=== PATIENT | male | born 1935 | race Caucasian/White ===

== ENCOUNTER 2019-05-21 20:32 | Emergency (ER) | payer MEDICARE, OTHER ==
[~2019-05-21] VITALS: Ht 185.4 cm; Wt 100.0 kg
[2019-05-21] MEDS ORDERED: haloperidol lactate 5mg/ml inj IM ONE (20:45)
[2019-05-21] MEDS ORDERED: FLEC50TA PO (20:56)
[2019-05-21] MEDS ORDERED: MULT1TAB74 PO (20:56)
[2019-05-21] MEDS ORDERED: BISA10SU11 RC (21:07)
[2019-05-21] MEDS ORDERED: QUET25TA PO (21:07)
[2019-05-21] MEDS ORDERED: FLO0.4C PO (21:07)
[2019-05-21] MEDS ORDERED: LORA1TAB PO (21:07)
[2019-05-21] MEDS ORDERED: SERT50TA PO (21:07)
[2019-05-21 21:14] LABS: BASOPHILS % (AUTO) 0.3 % (0-1); EOSINOPHILS # (AUTO) 0.2 X10'3 (0-0.9); EOSINOPHILS % (AUTO) 1.9 % (0-6); HEMATOCRIT 39.9 % (42.0-52.0); HEMOGLOBIN 13.7 g/dl (14.0-17.9); LYMPHOCYTES # (AUTO) 1.6 X10'3 (1.1-4.8); MEAN CORPUSCULAR HEMOGLOBIN 32.3 PG (27.0-31.0); MEAN CORPUSCULAR HGB CONC 34.3 g/dL (33.0-36.5); MEAN CORPUSCULAR VOLUME 94.2 FL (78-98); MEAN PLATELET VOLUME 9.2 FL (7.4-10.4); MONOCYTES # (AUTO) 0.7 X10'3 (0-0.9); MONOCYTES % (AUTO) 6.9 % (2-12); NEUTROPHILS # (AUTO) 8.1 X10'3 (1.8-7.7); NEUTROPHILS % (AUTO) 75.9 % (42-75); PLATELET COUNT 167 X10'3 (140-440); RED BLOOD COUNT 4.23 X10'6 (4.70-6.10); RED CELL DISTRIBUTION WIDTH 12.9 % (11.5-14.5); WHITE BLOOD COUNT 10.7 X10'3 (4.5-11.0)
--- NOTE | 2019-05-21 21:20 | NUR ---
PATIENT IN WHEELCHAIR WITH HAND CUFFS, TENSE, ANGRY, DEMANDING FOR HIS "HANDS TO BE RELEASED". WHEN ASSISTING WITH CHANGE INTO SCRUBS PATIENT YELLING STATING "DON'T YOU TAKE MY GLASSES OR ELSE YOU FUCKING FOLD THEM AND GIVE THEM BACK" PATIENT ASSISTED WITH DRESSING CHANGE AND BECAME CALM AND COOPERATIVE WITH QUESTIONS AND CARE PROVIDED, PATIENT ASKED FOR WATER AND STATES "THAT WATER IS DELICIOUS AND SO PURE". PATIENT POSITIONED FOR COMFORT, ALL SAFETY MEASURES IN PLACE, PATIENT IN SITE OF STAFF AT ALL TIMES.
--- NOTE | 2019-05-21 21:30 | NUR ---
PATIENT ATTEMPTED TO USE URINAL AND "MISSED", HYGIENE AND NEW SCRUB PANTS PROVIDED, PATIENT REPOSITIONED FOR COMFORT.
[2019-05-21 21:32] LABS: ALANINE AMINOTRANSFERASE 36 U/L (12-78); ALBUMIN 3.8 G/DL (3.4-5.0); ALBUMIN/GLOBULIN RATIO 1.1 (1.1-1.5); ALKALINE PHOSPHATASE 71 IU/L (46-116); ANION GAP 14 (8-16); ASPARTATE AMINO TRANSFERASE 31 U/L (10-37); BILIRUBIN,TOTAL 0.8 MG/DL (0.1-1.0); BLOOD UREA NITROGEN 18 MG/DL (7-18); BUN/CREATININE RATIO 14.6 (5.4-32.0); CHLORIDE 107 MMOL/L (99-107); CREATININE 1.23 MG/DL (0.60-1.10); GLUCOSE 106 MG/DL (70-104); POTASSIUM 3.7 MMOL/L (3.5-5.1); SODIUM 143 MMOL/L (135-145); TOTAL CARBON DIOXIDE 22.3 MMOL/L (24-32); TOTAL PROTEIN 7.3 G/DL (6.4-8.2); eGFR 56 ML/MIN
[2019-05-21 21:34] LABS: ETHANOL < 0.010 GM/DL (0.0-0.010)
[2019-05-21] MEDS ORDERED: LORazepam 1 MG tablet PO PRN (22:25)
[2019-05-21] MEDS ORDERED: bisacodyl 10mg suppository rectal RC PRN (22:25)
[2019-05-22 00:12] LABS: CLARITY,URINE CLEAR (Clear); COLOR,URINE YELLOW (Yellow); GLUCOSE, URINE NEGATIVE (Neg); KETONES,URINE 15 mg/dl (Neg); LEUKOCYTE ESTERASE ,URINE NEGATIVE (Neg); NITRITES, URINE NEGATIVE (Neg); OCCULT BLOOD,URINE NEGATIVE (Neg); PH,URINE 5.5 (4.8-8.0); PROTEIN,URINE TRACE mg/dl (Neg); UROBILINOGEN,URINE 0.2 E.U/dL (0.2-1.0)
[2019-05-22 00:17] LABS: UA COLLECTION TYPE NON-SPECIFIED
[2019-05-22 00:18] LABS: BACTERIA,URINE NONE SEEN /HPF (Neg); MUCUS STRANDS MODERATE /LPF (Neg); RBC,URINE NONE SEEN /HPF (0-2); SQUAMOUS EPITHELIAL CELL,UR NONE SEEN /LPF (FEW); WBC,URINE NONE SEEN /HPF (0-4)
[2019-05-22 00:24] LABS: URINE AMPHETAMINE SCREEN NEGATIVE (Neg); URINE BARBITUATE SCREEN NEGATIVE (Neg); URINE BENZODIAZEPINES SCREEN NEGATIVE (Neg); URINE CANNABINOID SCREEN NEGATIVE (Neg); URINE COCAINE SCREEN NEGATIVE (Neg); URINE METHADONE SCREEN NEGATIVE (Neg); URINE OPIATE SCREEN NEGATIVE (Neg); URINE PHENCYCLIDINE SCREEN NEGATIVE (Neg)
[2019-05-22] MEDS ORDERED: flecainide 50mg tablet PO SCH (08:00)
[2019-05-22] MEDS ORDERED: QUEtiapine 25mg tablet PO SCH (08:00)
[2019-05-22] MEDS ORDERED: sertraline 50mg tablet PO SCH (08:00)
[2019-05-22] MEDS ORDERED: tamsulosin 0.4mg capsule PO SCH (08:00)
--- NOTE | 2019-05-22 08:00 | NUR ---
Pt was incont of urine. Pt attire and bed linen changed.
--- NOTE | 2019-05-22 08:20 | NUR ---
Pt sitting at bedside eating breakfast tray.
--- NOTE | 2019-05-22 08:43 | NUR ---
Nurse Larisa from [facility] had called and was checking in on pt status. Nurse had left number for [facility] if needed to be spoke with:
--- NOTE | 2019-05-22 09:30 | NUR ---
Pt remains calm and cooperative. Magazines given pt to read, pt sitting quietly looking/reading magazines and denies needs at present time
--- NOTE | 2019-05-22 11:30 | NUR ---
Spoke with pts Chantal and she will be comming to pick pt up and take back to [facility].
--- NOTE | 2019-05-22 11:31 | NUR ---
Called [facility] and spoke to Kerri whom is aware pt will be brought back to facility by spouse shortly.
--- NOTE | 2019-05-22 11:35 | NUR ---
Received call from nurse Peres of [facility] and informed pt can not come back until cleared with their peoplesoft administrator. Pts called and updated, pt awaiting in room till further notice.
--- NOTE | 2019-05-22 11:54 | NUR ---
[facility] REP IS CALLING [facility] AND WILL COME SEE PT AFTER
--- NOTE | 2019-05-22 12:12 | NUR ---
volunteer services manager contacted and is working with [facility] regarding DC. Facility to call ED as soon and telecommunications facility examiner contacted.
[2019-05-22] MEDS ORDERED: OLANZapine 2.5MG tablet PO SCH ×2 (12:55)
--- NOTE | 2019-05-22 13:39 | NUR ---
NURSE SPOKE WITH RAZA AT [facility], PLAN IN PLACE FOR SAFETY TO TAKE PT BACK THERE. NURSE TO NURSE REPORT GIVEN TO RAZA, WILL CALL PT'S FOR TRANSPORTATION
[2019-05-22 14:54] VITALS: BP 106/63
== END 2019-05-22 14:59 ==
LOC: ER 20:32
DX: R45.1 Restlessness and agitation (principal); F03.90 Unspecified dementia, unspecified severity, without behavioral disturbance, psychotic disturbance, mood disturbance, and anxiety; Z79.899 Other long term (current) drug therapy
CPT/HCPCS: 36415; 80053; 80305; 80320; 81001; 84443; 85025; 96372; 99285; J1630

== ENCOUNTER 2019-06-09 17:52 | Emergency (ER) | payer MEDICARE, OTHER ==
[~2019-06-09] VITALS: Ht 188 cm; Wt 120.0 kg
[~2019-06-09 17:52] MED LIST: BISA10SU11 RC; FLEC50TA PO; FLO0.4C PO; LORA1TAB PO; MULT1TAB74 PO; QUET25TA PO; SERT50TA PO
[2019-06-09 19:08] LABS: BASOPHILS % (AUTO) 0.4 % (0-1); EOSINOPHILS # (AUTO) 0.3 X10'3 (0-0.9); EOSINOPHILS % (AUTO) 3.5 % (0-6); HEMATOCRIT 35.1 % (42.0-52.0); LYMPHOCYTES # (AUTO) 1.2 X10'3 (1.1-4.8); LYMPHOCYTES % (AUTO) 14.6 % (21-51); MEAN CORPUSCULAR HEMOGLOBIN 32.7 PG (27.0-31.0); MEAN CORPUSCULAR HGB CONC 34.1 g/dL (33.0-36.5); MEAN CORPUSCULAR VOLUME 95.9 FL (78-98); MEAN PLATELET VOLUME 10.7 FL (7.4-10.4); MONOCYTES # (AUTO) 0.7 X10'3 (0-0.9); MONOCYTES % (AUTO) 8.6 % (2-12); NEUTROPHILS # (AUTO) 5.8 X10'3 (1.8-7.7); NEUTROPHILS % (AUTO) 72.9 % (42-75); PLATELET COUNT 162 X10'3 (140-440); RED BLOOD COUNT 3.66 X10'6 (4.70-6.10); RED CELL DISTRIBUTION WIDTH 12.8 % (11.5-14.5); WHITE BLOOD COUNT 7.9 X10'3 (4.5-11.0)
[2019-06-09] MEDS ORDERED: HYDR-3964 PO (19:08)
[2019-06-09] MEDS ORDERED: MIRT15TA8 PO (19:08)
[2019-06-09] MEDS ORDERED: OLAN10TA19 PO (19:08)
[2019-06-09] MEDS ORDERED: HALO2TAB PO (19:08)
[2019-06-09 19:19] LABS: ALANINE AMINOTRANSFERASE 29 U/L (12-78); ALBUMIN 3.2 G/DL (3.4-5.0); ALKALINE PHOSPHATASE 82 IU/L (46-116); ANION GAP 9 (8-16); ASPARTATE AMINO TRANSFERASE 20 U/L (10-37); BILIRUBIN,TOTAL 0.4 MG/DL (0.1-1.0); BLOOD UREA NITROGEN 15 MG/DL (7-18); BUN/CREATININE RATIO 13.9 (5.4-32.0); CALCIUM 8.7 MG/DL (8.5-10.1); CHLORIDE 108 MMOL/L (99-107); CREATININE 1.08 MG/DL (0.60-1.10); GLUCOSE 107 MG/DL (70-104); POTASSIUM 3.9 MMOL/L (3.5-5.1); SODIUM 144 MMOL/L (135-145); TOTAL CARBON DIOXIDE 26.7 MMOL/L (24-32); TOTAL PROTEIN 6.3 G/DL (6.4-8.2); eGFR 65 ML/MIN
[2019-06-09 19:28] LABS: ETHANOL < 0.010 GM/DL (0.0-0.010)
[2019-06-09 19:36] LABS: LARGE PLATELETS MODERATE; PLATELET ESTIMATE NORMAL
[2019-06-09] MEDS ORDERED: bisacodyl 10mg suppository rectal RC PRN (20:25)
[2019-06-09] MEDS ORDERED: LORazepam 1 MG tablet PO PRN (20:25)
[2019-06-09] MEDS: haloperidol 1mg tablet PO SCH (21:53)
[2019-06-09] MEDS: tamsulosin 0.4mg capsule PO SCH (21:54)
[2019-06-09] MEDS: mirtazapine 15mg tablet PO SCH (21:54)
[2019-06-09] MEDS: OLANZAPINE 5 MG TABLET PO SCH (23:46)
[2019-06-10] MEDS ORDERED: haloperidol lactate 5mg/ml inj IM ONE (00:40)
[2019-06-10] MEDS ORDERED: hyDROXYzine 50 mg/ml injection ***IM only IM ONE (00:40)
--- NOTE | 2019-06-10 00:50 | NUR ---
PATIENT WALKED OUT OF ROOM SWINGING ARMS AT EVERY STAFF TRYING TO GUIDE HIM BACK TO ROOM, SAYING HE WANTS TO GO FOR A WALK. PCT AGREED TO AMBULATE HIM AROUND THE UNIT. PATIENT KEPT SAYING "I'M ALLOWED TO WALK AROUND MY HOUSE WHENEVER I WANT" RN & PCT REORIENTED PATIENT TO PLACE SAYING THIS IS A HOSPITAL AND HE IS A PATIENT. PATIENT REFUSED TO BELIEVE AND FOLLOW INSTRUCTIONS. ATTEMPTED TO GO INTO DIFFERENT PATIENTS' ROOM, AND SWUNG HIS ARMS AROUND AND CURSED AT WHOEVER ATTEMPTED TO STOP AND REDIRECT HIM. MD LAURENT ORDERED VISTARIL 50MG IM ONCE AND HALDOL 2.5MG IM ONCE. ADMINISTERED BOTH MEDICATIONS PER ORDER WITH MANUEL CALLAHAN AND SECURITY AT BEDSIDE. SITTER CLOSELY OBSERVING PATIENT. WARM BLANKET GIVEN. WILL CONTINUE TO MONITOR.
--- NOTE | 2019-06-10 06:45 | NUR ---
PT STANDING UP NEXT TO GURNEY, PT REFUSING TO GET ON GURNEY.
--- NOTE | 2019-06-10 07:15 | NUR ---
PT ENCOURAGE TO SIT DOWN AND IS NOW SITTING IN CHAIR AND DRINKING SOME COFFEE.
[2019-06-10] MEDS: haloperidol 1mg tablet PO SCH ×3 (08:08→20:03)
[2019-06-10] MEDS: HYDROcodone/acetaminophen 5mg/325mg tablet PO SCH ×2 (08:09→20:00)
[2019-06-10] MEDS: flecainide 50mg tablet PO SCH ×2 (08:10→20:00)
[2019-06-10] MEDS: OLANZAPINE 5 MG TABLET PO SCH (08:10)
[2019-06-10] MEDS: multivitamins, therapeutics tablet PO SCH (08:10)
[2019-06-10 08:30] LABS: CLARITY,URINE CLEAR (Clear); COLOR,URINE YELLOW (Yellow); GLUCOSE, URINE NEGATIVE (Neg); KETONES,URINE 15 mg/dl (Neg); LEUKOCYTE ESTERASE ,URINE NEGATIVE (Neg); NITRITES, URINE NEGATIVE (Neg); OCCULT BLOOD,URINE NEGATIVE (Neg); PROTEIN,URINE NEGATIVE (Neg); UROBILINOGEN,URINE 0.2 E.U/dL (0.2-1.0)
[2019-06-10 08:33] LABS: UA COLLECTION TYPE URINAL
[2019-06-10 08:45] LABS: URINE AMPHETAMINE SCREEN NEGATIVE (Neg); URINE BARBITUATE SCREEN NEGATIVE (Neg); URINE BENZODIAZEPINES SCREEN NEGATIVE (Neg); URINE CANNABINOID SCREEN NEGATIVE (Neg); URINE COCAINE SCREEN NEGATIVE (Neg); URINE METHADONE SCREEN NEGATIVE (Neg); URINE OPIATE SCREEN POSITIVE (Neg); URINE PHENCYCLIDINE SCREEN NEGATIVE (Neg)
--- NOTE | 2019-06-10 09:18 | NUR ---
packet faxed to mental health
--- NOTE | 2019-06-10 09:58 | NUR ---
PT'S CALLED (JEANETH GARCIA) PT'S REPORTS THAT [facility] IS LOOKING TO PLACE PT IN A HOME. PT'S REPORTS THAT SHE CAN NOT CARE FOR PT AT HOME.
--- NOTE | 2019-06-10 11:00 | NUR ---
PT BEING SEEN BY PSYCHIATRIST DR. CUELLO WHOM IS REVIEWING PTS CURRENT MEDICATIONS FOR POSSIBLE RECOMMENDATIONS.
--- NOTE | 2019-06-10 12:21 | NUR ---
SARA WITH [facility] CALLED AND NEEDS REFERAL FOR [facility] IN [place], [place]. [facility] FAX
--- NOTE | 2019-06-10 13:13 | NUR ---
PT GIVEN MEAL TRAY FOR LUNCH, PT CONTINUES TO HAVE SITTER.
--- NOTE | 2019-06-10 13:15 | NUR ---
[facility] CALLED AND IS TRYING TO FCILITAE THE TRANFER OF PT TO [facility] IN [place].
[2019-06-10] MEDS ORDERED: haloperidol 1mg tablet PO PRN (14:10)
[2019-06-10] MEDS ORDERED: LORazepam 1 MG tablet PO PRN (14:15)
--- NOTE | 2019-06-10 14:16 | NUR ---
Referral packet faxed to [facility] at [phone] w/ fax conf. Continue to monitor.
--- NOTE | 2019-06-10 15:28 | NUR ---
PT IS UP PACING IN ROOM. SITTER HAS DOORS CLOSED.
[2019-06-10] MEDS: OLANZapine 2.5MG tablet PO SCH (20:03)
[2019-06-10] MEDS: mirtazapine 15mg tablet PO SCH (20:03)
[2019-06-10] MEDS: tamsulosin 0.4mg capsule PO SCH (20:03)
[2019-06-10] MEDS: quetiapine 100mg tablet PO SCH (21:25)
[2019-06-10] MEDS ORDERED: LORazepam 2 mg/ml vial IM ONE (21:30)
[2019-06-10] MEDS ORDERED: LORazepam 2 mg/ml vial ONE (21:35)
--- NOTE | 2019-06-10 21:39 | NUR ---
PT AGGITATED. WILL NOT FOLLOW SAFETY COMMANDS TO STAY IN BED. REORIENTATION AND DISTRACTION TECHNIQUES ARE NOT WORKING WITH PT. HE IS VERBALLY AND PHYSICALLY AGRESSIVE STATING "DO NOT CROSS THIS LINE OR I WILL BEAT THE SHIT OUT OF YOU" PT SWINGING HIS ARMS TOWARD STAFF IN ATTEMPT TO STRIKE STAFF. SECURITY CALLED TO BEDSIDE. PROVIDER AWARE AND ORDER FOR 2MG ATIVAN IM ENTERED AND ADMINISTERED. PT WAS PLACED INTO 4 POINT RESTRAINTS WITH THE ASSISTANCE OF SECURITY TO PROVIDE PT AND STAFF SAFETY. SITTER PRESENT OUTSIDE ROOM
--- NOTE | 2019-06-10 21:52 | NUR ---
PT CONTINUES AGITITATION AND ATTEMPTED TO KICK TECH DURING VITAL SIGNS. VITAL SIGNS WILL BE ATTEMPTED AT A LATER TIME.
--- NOTE | 2019-06-11 00:45 | NUR ---
PT STILL RESTLESS AND UNABLE TO FOLLOW SAFETY COMMANDS - ATTEMPTS WERE MADE TO REMOVE PT FROM RESTRAINTS BUT HE REMAINS AGITATED AND SWINGS AT STAFF WHILE ATTEMPTING TO TAKE VITALS. SPOKE WITH AND REC'D VERBAL ORDER FOR HALDOL IM - PT MEDICATED WITHOUT INCIDENT.
[2019-06-11] MEDS ORDERED: haloperidol lactate 5mg/ml inj IM ONE ×2 (00:55→20:55)
--- NOTE | 2019-06-11 04:45 | NUR ---
no changes, he has just been sleeping. sitter at door.
[2019-06-11] MEDS: multivitamins, therapeutics tablet PO SCH (08:00)
[2019-06-11] MEDS: flecainide 50mg tablet PO SCH ×2 (08:00→20:00)
[2019-06-11] MEDS: haloperidol 1mg tablet PO SCH ×3 (08:00→21:00)
[2019-06-11] MEDS: OLANZAPINE 5 MG TABLET PO SCH (08:00)
[2019-06-11] MEDS: HYDROcodone/acetaminophen 5mg/325mg tablet PO SCH ×2 (08:00→20:00)
--- NOTE | 2019-06-11 20:55 | NUR ---
pt is attempting to get out of bed, confused and combative.
[2019-06-11] MEDS: tamsulosin 0.4mg capsule PO SCH (20:59)
[2019-06-11] MEDS: quetiapine 100mg tablet PO SCH (21:00)
[2019-06-11] MEDS: mirtazapine 15mg tablet PO SCH (21:00)
[2019-06-11] MEDS: OLANZapine 2.5MG tablet PO SCH (21:00)
[2019-06-12] MEDS ORDERED: quetiapine 100mg tablet PO ONE (01:20)
--- NOTE | 2019-06-12 06:39 | NUR ---
RECEIVED REPORT FROM LO [facility]ACKSON, INFORMED PT AND VS HAVE BEEN STABLE, PT IS CURRENTLY SLEEPING, RESPRIATIONS SPONTANEOUS, EVEN UNLABORED, NO S/S OF DISTRESS OR DISCOMFORT, WILL CONTINUE TO MONITOR UNTIL PT IS TRANSPORTED AT 0800 TO [facility], PT HAS 1:1 SITTER FARHAD AT BEDSIDE.
[2019-06-12] MEDS: haloperidol 1mg tablet PO SCH (08:00)
[2019-06-12] MEDS: HYDROcodone/acetaminophen 5mg/325mg tablet PO SCH (08:00)
[2019-06-12] MEDS: flecainide 50mg tablet PO SCH (08:13)
[2019-06-12] MEDS: multivitamins, therapeutics tablet PO SCH (08:13)
[2019-06-12] MEDS: OLANZAPINE 5 MG TABLET PO SCH (08:13)
--- NOTE | 2019-06-12 08:29 | NUR ---
PT AND SON ARE HERE TO TRANSPORT PT TO [facility], GAVE PT VIT, ZYPREXA AND FLECANIDE BUT PT WAS SLEEPY SO DID NOT GIVE NORCO OR HALDOL.
[2019-06-12 08:30] VITALS: BP 118/68
== END 2019-06-12 08:57 ==
LOC: ER 17:53
DX: R45.851 Suicidal ideations (principal); R45.6 Violent behavior; F03.90 Unspecified dementia, unspecified severity, without behavioral disturbance, psychotic disturbance, mood disturbance, and anxiety; Z79.899 Other long term (current) drug therapy
CPT/HCPCS: 36415; 80053; 80305; 80320; 81003; 84443; 85025; 93005; 96372; 99285; J1630; J2060; J3410